=== PATIENT | female | born 1990 | race Caucasian/White ===

== ENCOUNTER 2020-07-02 15:52 | Outpatient (REF) | payer MEDICAID, SELFPAY | END 2020-07-02 15:53 | disposition home or self-care (01) | LOC: HO.LAB 15:52 | PROVIDERS: Visit Provider Internal Medicine | DX: Z20.828 Contact with and (suspected) exposure to other viral communicable diseases (principal) | CPT/HCPCS: C9803; U0003 ==

== ENCOUNTER 2021-07-07 21:58 | Emergency (ER) | payer MEDICAID, SELFPAY | END 2021-07-08 02:14 | disposition left against medical advice (07) | PROVIDERS: Emergency Provider Emergency Medicine | DX: R51.9 Headache, unspecified (principal) ==

== ENCOUNTER 2022-10-26 16:21 | Emergency (ER) | payer MEDICAID, SELFPAY ==
--- NOTE | ~2022-10-26 | XR_ITS ---
EXAMINATION: XR CHEST CLINICAL INFORMATION: Chest pain COMPARISON: None available. TECHNIQUE: Frontal view of the chest was obtained. FINDINGS: No significant abnormality is noted involving the heart, lungs, mediastinum, bony thorax or soft tissues. XR/XR chest 1V IMPRESSION: Unremarkable examination.
[2022-10-26 16:23] VITALS: BP 129/78; PULSE 86; RESP 16; TEMP 36.7; O2SAT 96; BMI 44.6
--- NOTE | 2022-10-26 16:25 | ECG_ITS ---
Test Reason : CHEST PAIN Blood Pressure : / mmHG Vent. Rate : 077 BPM Atrial Rate : 077 BPM P-R Int : 172 ms QRS Dur : 074 ms QT Int : 360 ms P-R-T Axes : 017 001 009 degrees QTc Int : 407 ms Normal sinus rhythm Cannot rule out Anterior infarct , age undetermined - could be related to body habitus/lead placement Abnormal ECG No previous ECGs available Referred By: Howie Hernández Electronically Signed By:SERINA MARTINEZ
--- NOTE | 2022-10-26 16:27 | ED.GENADULT ---
HPI - General Adult General Chief complaint: General Medical Stated complaint: sob,mid back pain Time Seen by Provider: 10/26/22 17:52 Related Data Previous Rx's Medication Instructions Recorded ibuprofen 400 mg tablet 400 mg PO Q6H PRN pain #20 tabs 10/26/22 Allergies Allergy/AdvReac Type Severity Reaction Status Date / Time No Known Allergies Allergy Unverified 04/18/20 17:02 NKA Allergy Unknown Uncoded 03/21/19 00:00 [facility] Social History Social History Advance Directives: No Advance Directives Information Provided: No Physical Exam ED Vital Signs: Vital Signs - 24 hr 10/26/22 16:23 Temperature 98.1 F Pulse Rate 86 Respiratory Rate 16 Blood Pressure 129/78 Pulse Oximetry 96 Oxygen Delivery Method Room Air BMI result Body Mass Index 44.6 Course Course Course Narrative: RME: 32 yold fmelae presents to the ED for SOB, pleurisy, chest and upper back pain. patient denies any leg swelling, calf pain, coughing up blood, recent surgery, recent trauma, or control use. patient states she had Covid last month Medical Decision Making Lab Data 10/26/22 16:41 10/26/22 16:41 Labs: Lab Results 10/26/22 10/26/22 10/26/22 Range/Units 16:37 16:41 16:41 WBC 7.4 (4.8-10.8) X10*3/uL RBC 4.22 (4.20-5.50) X10*6/uL Hgb 11.9 L (12.0-16.0) g/dl Hct 37.0 (37.0-47.0) % MCV 87.7 (80.0-98.0) fL MCH 28.2 (27.0-33.0) pg MCHC 32.2 (31.0-35.0) g/dl RDW 14.5 (11.0-16.0) % Plt Count 242 (160-400) X10*3/uL MPV 11.6 (9.4-12.3) fL Immature Gran % (Auto) 0.3 (0.0-0.4) % Neut % (Auto) 67.4 (45-73) % Lymph % (Auto) 23.8 (20-40) % [place] % (Auto) 6.6 (2-11) % Eos % (Auto) 1.2 (0-4) % Baso % (Auto) 0.7 (0-2) % Lymph # (Auto) 1.8 (1.2-4.9) X10*3/uL [place] # (Auto) 0.5 (0.1-1.2) X10*3/uL Eos # (Auto) 0.1 (0.0-0.4) X10*3/uL Baso # (Auto) 0.1 (0.0-0.2) X10*3/uL Abs Immat Gran (auto) 0.02 (0.00-0.03) X10*3/uL Absolute Neuts (auto) 5.0 (2.0-8.3) x10*3/uL Absolute Nucleated RBC 0.000 (0.0-0.012) X10*3/uL Nucleated RBC % (auto) 0.0 (0.0-0.2) /100WBC PT 11.6 (10.0-13.1) SEC INR 1.0 (0.9-1.1) APTT 24.4 L (26.0-36.4) SEC D-Dimer High Sensitivty < 150 NG/ML Sodium (135-145) mmol/L Potassium (3.3-5.1) mmol/L Chloride (96-108) mmol/L Carbon Dioxide (22-29) mmol/L Anion Gap (12-20) BUN (9-16) mg/dL Creatinine (0.5-1.4) mg/dL Estim Creat Clear Calc Estimated GFR Random Glucose (60-115) mg/dL Calcium (8.4-10.2) mg/dL Total Bilirubin (0.0-1.0) mg/dL AST (5-31) U/L ALT (0-31) U/L Alkaline Phosphatase (39-117) U/L Troponin I High Sens (<3.5-17.0) ng/L B-Natriuretic Peptide (<100) pg/mL Total Protein (6.5-8.0) g/dL Albumin (3.5-5.0) g/dL 10/26/22 10/26/22 10/26/22 Range/Units 16:41 16:41 16:41 WBC (4.8-10.8) X10*3/uL RBC (4.20-5.50) X10*6/uL Hgb (12.0-16.0) g/dl Hct (37.0-47.0) % MCV (80.0-98.0) fL MCH (27.0-33.0) pg MCHC (31.0-35.0) g/dl RDW (11.0-16.0) % Plt Count (160-400) X10*3/uL MPV (9.4-12.3) fL Immature Gran % (Auto) (0.0-0.4) % Neut % (Auto) (45-73) % Lymph % (Auto) (20-40) % [place] % (Auto) (2-11) % Eos % (Auto) (0-4) % Baso % (Auto) (0-2) % Lymph # (Auto) (1.2-4.9) X10*3/uL [place] # (Auto) (0.1-1.2) X10*3/uL Eos # (Auto) (0.0-0.4) X10*3/uL Baso # (Auto) (0.0-0.2) X10*3/uL Abs Immat Gran (auto) (0.00-0.03) X10*3/uL Absolute Neuts (auto) (2.0-8.3) x10*3/uL Absolute Nucleated RBC (0.0-0.012) X10*3/uL Nucleated RBC % (auto) (0.0-0.2) /100WBC PT (10.0-13.1) SEC INR (0.9-1.1) APTT (26.0-36.4) SEC D-Dimer High Sensitivty NG/ML Sodium 141 (135-145) mmol/L Potassium 3.9 (3.3-5.1) mmol/L Chloride 106 (96-108) mmol/L Carbon Dioxide 25 (22-29) mmol/L Anion Gap 14 (12-20) BUN 13 (9-16) mg/dL Creatinine 0.76 (0.5-1.4) mg/dL Estim Creat Clear Calc 136.3 Estimated GFR > 60 Random Glucose 104 (60-115) mg/dL Calcium 9.1 (8.4-10.2) mg/dL Total Bilirubin 0.3 (0.0-1.0) mg/dL AST 15 (5-31) U/L ALT 23 (0-31) U/L Alkaline Phosphatase 61 (39-117) U/L Troponin I High Sens < 3.5 (<3.5-17.0) ng/L B-Natriuretic Peptide < 10 (<100) pg/mL Total Protein 6.7 (6.5-8.0) g/dL Albumin 4.0 (3.5-5.0) g/dL Discharge Plan Discharge Clinical Impression: Chest pain Patient Disposition: Home, Self-Care Instructions: Chest Pain (ED) Prescriptions: New ibuprofen 400 mg tablet 400 mg PO Q6H PRN (Reason: pain) Qty: 20 0RF Referrals: Physician,Unknown J [Primary Care Provider] - Interventions: ED Discharge Assessment Last Done: 10/26/22 18:52 Discharge Date/Time: 10/26/22 18:53
[2022-10-26 16:53] LABS: MANUAL DIFF FLAG NO
[2022-10-26 16:55] LABS: Basophils Absolute Auto 0.1 X10*3/uL (0.0-0.2); Basophils Percent Auto 0.7 % (0-2); Eosinophils Absolute Auto 0.1 X10*3/uL (0.0-0.4); Eosinophils Percent Auto 1.2 % (0-4); Hemoglobin 11.9 g/dl (12.0-16.0); Imm Gran Abs Auto 0.02 X10*3/uL (0.00-0.03); Imm Gran Pct Auto 0.3 % (0.0-0.4); Lymphocytes Absolute Auto 1.8 X10*3/uL (1.2-4.9); Lymphocytes Percent Auto 23.8 % (20-40); Mean Corpuscular HGB Conc 32.2 g/dl (31.0-35.0); Mean Corpuscular Hemoglobin 28.2 pg (27.0-33.0); Mean Corpuscular Volume 87.7 fL (80.0-98.0); Mean Platelet Volume 11.6 fL (9.4-12.3); Monocytes Absolute Auto 0.5 X10*3/uL (0.1-1.2); Monocytes Percent Auto 6.6 % (2-11); Neutrophils Percent Auto 67.4 % (45-73); Platelet Count 242 X10*3/uL (160-400); Red Blood Count 4.22 X10*6/uL (4.20-5.50); Red Cell Distribution Width 14.5 % (11.0-16.0); White Blood Count 7.4 X10*3/uL (4.8-10.8)
[2022-10-26 17:00] LABS: Prothrombin Time 11.6 SEC (10.0-13.1)
[2022-10-26 17:03] LABS: Partial Thromboplastin Time 24.4 SEC (26.0-36.4)
[2022-10-26 17:11] LABS: D Dimer High Sensitivity < 150 NG/ML
[2022-10-26 17:20] LABS: Alanine Aminotransferase 23 U/L (0-31); Alkaline Phosphatase 61 U/L (39-117); Anion Gap 14 (12-20); Aspartate Amino Transferase 15 U/L (5-31); Bilirubin Total 0.3 mg/dL (0.0-1.0); Blood Urea Nitrogen 13 mg/dL (9-16); Calcium 9.1 mg/dL (8.4-10.2); Carbon Dioxide 25 mmol/L (22-29); Chloride 106 mmol/L (96-108); Creatinine Clr Calc Pharmacy 136.3; Estimated Glomerular Filt Rate > 60; Glucose Random 104 mg/dL (60-115); Potassium 3.9 mmol/L (3.3-5.1); Sodium 141 mmol/L (135-145); Total Protein 6.7 g/dL (6.5-8.0)
[2022-10-26 17:27] LABS: B Type Natriuretic Peptide < 10 pg/mL (<100)
[2022-10-26 17:28] LABS: Troponin-I High Sensitivity < 3.5 ng/L (<3.5-17.0)
--- NOTE | 2022-10-26 18:00 | ED.GENADULT ---
HPI - General Adult General Chief complaint: General Medical Stated complaint: sob,mid back pain Time Seen by Provider: 10/26/22 17:52 History of Present Illness HPI narrative: Patient is a 32-year-old female presents today with having chest pain. Seems to be worse when she takes a deep breath. Patient is not on any control pills. No leg swelling. No history of cancer. Patient denies any diaphoresis. No history of diabetes, hypertension, high cholesterol, smoking, heart attack. Patient is of larger size she weighs 121 kg and she is 5 ft 5 in tall. Her BMI is approximately 45. Patient feels that when she takes a deep breath she had some pain. Patient denies any family history of dissections. No fever no chills no coughing or congestion or upper respiratory symptoms. Related Data Previous Rx's Medication Instructions Recorded ibuprofen 400 mg tablet 400 mg PO Q6H PRN pain #20 tabs 10/26/22 Allergies Allergy/AdvReac Type Severity Reaction Status Date / Time No Known Allergies Allergy Unverified 04/18/20 17:02 NKA Allergy Unknown Uncoded 03/21/19 00:00 Review of Systems Review of Systems: Positive chest pain Yes all other systems are reviewed and are negative [facility] Past Medical History Attestation statement: The following information was validated with the patient. Social History Social History Advance Directives: No Advance Directives Information Provided: No Physical Exam ED Vital Signs: Vital Signs - 24 hr 10/26/22 16:23 Temperature 98.1 F Pulse Rate 86 Respiratory Rate 16 Blood Pressure 129/78 Pulse Oximetry 96 Oxygen Delivery Method Room Air BMI result Body Mass Index 44.6 Appearance: Alert. Oriented X3. No acute distress. Eyes: Pupils equal, round and reactive to light. ENT: Pharynx normal. Neck: Normal inspection. Neck supple. No lymph nodes noted. No crepitus CVS: Normal heart rate and rhythm. Pulses normal. Normal S1 and S2 Respiratory: No respiratory distress. Breath sounds normal. No Wheezing. No rales Abdomen: Soft and nontender. No rigidity. No distention. good BS x4 Skin: Skin warm and dry. Normal skin color. Normal skin turgor. Extremities: No lower extremity edema. Neurovascular intact to all extremities. No Lacerations. No Rash Neuro: Oriented X 3. No motor deficit. No sensory deficit. Moving all extermities. No slurred speech Medical Decision Making Medical Decision Making [facility] Narrative: Patient well appearing no acute distress she is 32 years old 1 cardiac risk factor being that she is larger in size. Patient's cardiac enzyme was negative. Her history was not consistent with ACS. Her EKG showed a sinus pattern heart rate was 75 NM QRS QT within normal limits is no acute ST segment elevation. Patient well appearing no distress. Symptoms not consistent with ACS. Patient's heart score is less than 3. Chest x-ray was negative for any acute evidence of pneumonia pneumothorax. Patient's D-dimer is negative. In the setting of low risk patient is unlikely to have pulmonary emboli. Will discharge patient home follow up for her chest pain. Differential Diagnosis Differential Diagnoses: The differential diagnosis associated with the presentation includes PE, pneumonia, pneumothorax, ACS, musculoskeletal, dissection Lab Data [facility] Lab Attestation statement: I reviewed the patient's lab results. 10/26/22 16:41 10/26/22 16:41 Labs: Lab Results 10/26/22 10/26/22 10/26/22 Range/Units 16:37 16:41 16:41 WBC 7.4 (4.8-10.8) X10*3/uL RBC 4.22 (4.20-5.50) X10*6/uL Hgb 11.9 L (12.0-16.0) g/dl Hct 37.0 (37.0-47.0) % MCV 87.7 (80.0-98.0) fL MCH 28.2 (27.0-33.0) pg MCHC 32.2 (31.0-35.0) g/dl RDW 14.5 (11.0-16.0) % Plt Count 242 (160-400) X10*3/uL MPV 11.6 (9.4-12.3) fL Immature Gran % (Auto) 0.3 (0.0-0.4) % Neut % (Auto) 67.4 (45-73) % Lymph % (Auto) 23.8 (20-40) % [place] % (Auto) 6.6 (2-11) % Eos % (Auto) 1.2 (0-4) % Baso % (Auto) 0.7 (0-2) % Lymph # (Auto) 1.8 (1.2-4.9) X10*3/uL [place] # (Auto) 0.5 (0.1-1.2) X10*3/uL Eos # (Auto) 0.1 (0.0-0.4) X10*3/uL Baso # (Auto) 0.1 (0.0-0.2) X10*3/uL Abs Immat Gran (auto) 0.02 (0.00-0.03) X10*3/uL Absolute Neuts (auto) 5.0 (2.0-8.3) x10*3/uL Absolute Nucleated RBC 0.000 (0.0-0.012) X10*3/uL Nucleated RBC % (auto) 0.0 (0.0-0.2) /100WBC PT 11.6 (10.0-13.1) SEC INR 1.0 (0.9-1.1) APTT 24.4 L (26.0-36.4) SEC D-Dimer High Sensitivty < 150 NG/ML Sodium (135-145) mmol/L Potassium (3.3-5.1) mmol/L Chloride (96-108) mmol/L Carbon Dioxide (22-29) mmol/L Anion Gap (12-20) BUN (9-16) mg/dL Creatinine (0.5-1.4) mg/dL Estim Creat Clear Calc Estimated GFR Random Glucose (60-115) mg/dL Calcium (8.4-10.2) mg/dL Total Bilirubin (0.0-1.0) mg/dL AST (5-31) U/L ALT (0-31) U/L Alkaline Phosphatase (39-117) U/L Troponin I High Sens (<3.5-17.0) ng/L B-Natriuretic Peptide (<100) pg/mL Total Protein (6.5-8.0) g/dL Albumin (3.5-5.0) g/dL 10/26/22 10/26/22 10/26/22 Range/Units 16:41 16:41 16:41 WBC (4.8-10.8) X10*3/uL RBC (4.20-5.50) X10*6/uL Hgb (12.0-16.0) g/dl Hct (37.0-47.0) % MCV (80.0-98.0) fL MCH (27.0-33.0) pg MCHC (31.0-35.0) g/dl RDW (11.0-16.0) % Plt Count (160-400) X10*3/uL MPV (9.4-12.3) fL Immature Gran % (Auto) (0.0-0.4) % Neut % (Auto) (45-73) % Lymph % (Auto) (20-40) % [place] % (Auto) (2-11) % Eos % (Auto) (0-4) % Baso % (Auto) (0-2) % Lymph # (Auto) (1.2-4.9) X10*3/uL [place] # (Auto) (0.1-1.2) X10*3/uL Eos # (Auto) (0.0-0.4) X10*3/uL Baso # (Auto) (0.0-0.2) X10*3/uL Abs Immat Gran (auto) (0.00-0.03) X10*3/uL Absolute Neuts (auto) (2.0-8.3) x10*3/uL Absolute Nucleated RBC (0.0-0.012) X10*3/uL Nucleated RBC % (auto) (0.0-0.2) /100WBC PT (10.0-13.1) SEC INR (0.9-1.1) APTT (26.0-36.4) SEC D-Dimer High Sensitivty NG/ML Sodium 141 (135-145) mmol/L Potassium 3.9 (3.3-5.1) mmol/L Chloride 106 (96-108) mmol/L Carbon Dioxide 25 (22-29) mmol/L Anion Gap 14 (12-20) BUN 13 (9-16) mg/dL Creatinine 0.76 (0.5-1.4) mg/dL Estim Creat Clear Calc 136.3 Estimated GFR > 60 Random Glucose 104 (60-115) mg/dL Calcium 9.1 (8.4-10.2) mg/dL Total Bilirubin 0.3 (0.0-1.0) mg/dL AST 15 (5-31) U/L ALT 23 (0-31) U/L Alkaline Phosphatase 61 (39-117) U/L Troponin I High Sens < 3.5 (<3.5-17.0) ng/L B-Natriuretic Peptide < 10 (<100) pg/mL Total Protein 6.7 (6.5-8.0) g/dL Albumin 4.0 (3.5-5.0) g/dL Independent Interpretation I performed an independent interpretation of an: EKG and Plain X-Ray Interpretation: Patient's EKG by my interpretation showed the sinus pattern heart rate 75 NM QRS QT within normal limits there is no acute ST segment elevation. Patient's chest x-ray by my interpretation was grossly negative there is no pneumonia no pneumothorax. Radiology Impression Discussion of test interpretation with radiology: I have reviewed the radiologist's reading. Prescription Management I considered prescription management with: Pain Medication Discharge Plan Discharge Clinical Impression: Chest pain Patient Disposition: Home, Self-Care Instructions: Chest Pain (ED) Prescriptions: New ibuprofen 400 mg tablet 400 mg PO Q6H PRN (Reason: pain) Qty: 20 0RF Referrals: Physician,Unknown J [Primary Care Provider] -
[2022-10-26 18:17] VITALS: BP 134/74; PULSE 70; RESP 18; TEMP 36.6; O2SAT 97
== END 2022-10-26 18:53 | disposition home or self-care (01) ==
PROVIDERS: Physician Assistant; Emergency Provider Emergency Medicine Emergency Medical Services
DX: R07.89 Other chest pain (principal); R06.02 Shortness of breath; Z79.899 Other long term (current) drug therapy
CPT/HCPCS: 36415; 71045; 80053; 83880; 84484; 85025; 85379; 85610; 85730; 93005; 99283; 99284

== ENCOUNTER 2023-01-25 19:40 | Emergency (ER) | payer MEDICAID, SELFPAY ==
[2023-01-25 19:48] VITALS: BP 153/87; PULSE 76; RESP 18; TEMP 36.4; O2SAT 98; BMI 44.6
--- NOTE | 2023-01-25 19:48 | ED.HA ---
HPI - Headache General Chief Complaint: Headache Stated Complaint: migraine Related Data Previous Rx's Medication Instructions Recorded ibuprofen 400 mg tablet 400 mg PO Q6H PRN pain #20 tabs 10/26/22 Allergies Allergy/AdvReac Type Severity Reaction Status Date / Time No Known Allergies Allergy Verified 01/25/23 19:48 [facility] Social History Social History Alcohol intake: never Smoked in Last 30 Days: No Use of substances other than those prescribed or required for medical reasons: No Advance Directives: No Advance Directives Information Provided: No Patient : No Physical Exam Vital Signs: Vital Signs: Last Vital Signs Temp 98.4 F 01/25/23 21:41 Pulse 85 01/25/23 21:41 Resp 16 01/25/23 21:41 BP 140/79 H 01/25/23 21:41 Pulse Ox 97 01/25/23 21:41 O2 Del Method Room Air 01/25/23 21:41 BMI result Body Mass Index 44.6 Course Course Course Narrative: RME - 33 yo female with history of migraines presents to the ER for evaluation of diffuse headache that started at 6am today. No relief with motrin and tylenol at home. +photophobia. No neck pain, weakness, numbness, tingling, or vision changes. Plan: medicate and reassess. Reevaluation(s) Reevaluation #1: patient eloped prior to treatment Discharge Plan Discharge Clinical Impression: Headache Patient Disposition: Elopement Prescriptions: No Action ibuprofen 400 mg tablet 400 mg PO Q6H PRN (Reason: pain) Qty: 20 0RF Interventions: ED Discharge Assessment Last Done: 01/25/23 22:35 Discharge Date/Time: 01/25/23 22:36
[2023-01-25 21:41] VITALS: BP 140/79; PULSE 85; RESP 16; TEMP 36.9; O2SAT 97
--- NOTE | 2023-01-25 22:32 | PC.NURSE ---
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 The pt reports presence of continued headache adding that she has been asking for medication to assist with pain for 2 hours; RN attempted to educate the patient on the medications available for RN's to order prior to provider eval in the main however she reported I already took that . The pt was conversing in full/complete sentences, ambulating with a steady gait and without any visible distress noted.
== END 2023-01-25 22:36 | disposition left against medical advice (07) ==
PROVIDERS: Emergency Provider Emergency Medicine
DX: R51.9 Headache, unspecified (principal)
CPT/HCPCS: 99282; 99284

== ENCOUNTER 2025-01-04 16:37 | Emergency (ER) | payer MEDICAID, SELFPAY ==
--- NOTE | ~2025-01-04 | XR_ITS ---
CLINICAL HISTORY: cp 2 view chest x-ray Comparison: None Findings: Normal size heart. No consolidation, pleural effusion or pneumothorax. No acute fracture. IMPRESSION: 1. No acute findings. This document has been electronically signed by: Ninoska Barrera MD on 01/04/2025 17:22:50
--- NOTE | 2025-01-04 16:40 | ECG_ITS ---
Test Reason : CP Blood Pressure : */* mmHG Vent. Rate : 89 BPM Atrial Rate : 89 BPM P-R Int : 180 ms QRS Dur : 74 ms QT Int : 362 ms P-R-T Axes : 34 6 6 degrees QTcB Int : 440 ms Normal sinus rhythm Normal ECG When compared with ECG of 26-Oct-2022 16:42, No significant change was found Referred By: Yelena Jean Electronically Signed By: SERINA MARTINEZ
[2025-01-04 16:50] VITALS: BP 131/67; PULSE 94; RESP 22; TEMP 37.1; O2SAT 95; BMI 45.7
--- NOTE | 2025-01-04 16:50 | ED.CHESTPAIN ---
HPI - Chest Pain General Stated Complaint: cp Related Data Previous Rx's ?Medication ?Instructions ?Recorded ibuprofen 400 mg tablet 400 mg PO Q6H PRN pain #20 tabs 10/26/22 Allergies Allergy/AdvReac Type Severity Reaction Status Date / Time No Known Allergies Allergy Verified 01/04/25 16:51 [facility] Social History Social History Alcohol intake: never Course Course Course Narrative: This is a Rapid Medical Exam performed in triage by Yelena Jean PA-C. Full HPI, ROS and PE to be performed by primary ED provider. 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 Admits to feeling stressed prior to sx. CP describes as tightness & intermittent PE: tearful, in wheelchair, nontoxic appearing, talking in complete sentences Plan: EKG, labs, CXR, SARs Discharge Plan Discharge Prescriptions: No Action ibuprofen 400 mg tablet 400 mg PO Q6H PRN (Reason: pain) Qty: 20 0RF Print Language: Occitan
[2025-01-04 17:15] LABS: MANUAL DIFF FLAG NO
[2025-01-04 17:25] LABS: Basophils Percent Auto 0.5 % (0-2); Eosinophils Absolute Auto 0.1 X10*3/uL (0.0-0.4); Eosinophils Percent Auto 0.7 % (0-4); Hematocrit 33.6 % (37.0-47.0); Hemoglobin 10.6 g/dl (12.0-16.0); Imm Gran Abs Auto 0.03 X10*3/uL (0.00-0.03); Imm Gran Pct Auto 0.4 % (0.0-0.4); Lymphocytes Absolute Auto 1.3 X10*3/uL (1.2-4.9); Lymphocytes Percent Auto 16.7 % (20-40); Mean Corpuscular HGB Conc 31.5 g/dl (31.0-35.0); Mean Corpuscular Hemoglobin 27.1 pg (27.0-33.0); Mean Corpuscular Volume 85.9 fL (80.0-98.0); Mean Platelet Volume 11.1 fL (9.4-12.3); Monocytes Absolute Auto 0.6 X10*3/uL (0.1-1.2); Monocytes Percent Auto 8.1 % (2-11); Neutrophils Absolute Auto 5.5 x10*3/uL (2.0-8.3); Neutrophils Percent Auto 73.6 % (45-73); Platelet Count 267 X10*3/uL (160-400); Red Blood Count 3.91 X10*6/uL (4.20-5.50); Red Cell Distribution Width 14.8 % (11.0-16.0); White Blood Count 7.5 X10*3/uL (4.8-10.8)
[2025-01-04 17:38] LABS: Alanine Aminotransferase 22 U/L (0-31); Albumin Level 4.2 g/dL (3.5-5.0); Alkaline Phosphatase 59 U/L (39-117); Anion Gap 13 (12-20); Aspartate Amino Transferase 30 U/L (5-31); Bilirubin Direct 0.2 mg/dL (0.0-0.5); Bilirubin Total 0.5 mg/dL (0.0-1.0); Blood Urea Nitrogen 13 mg/dL (9-16); Calcium 9.3 mg/dL (8.4-10.2); Carbon Dioxide 25 mmol/L (22-29); Chloride 110 mmol/L (96-108); Creatinine Clr Calc Pharmacy 111.5; Estimated Glomerular Filt Rate > 60; Glucose Random 106 mg/dL (60-115); HCG Quantitative < 2 mIU/mL; Potassium 3.7 mmol/L (3.3-5.1); Sodium 144 mmol/L (135-145); Total Protein 6.9 g/dL (6.5-8.0); Troponin-I High Sensitivity < 2.7 ng/L (<3.5-17.0)
[2025-01-04 17:52] LABS: Influenza A PCR NEGATIVE (Negative); Influenza B PCR NEGATIVE (Negative); Resp Syncy Virus RNA Qual PCR NEGATIVE (Negative); SARS COV2 PCR INHOUSE NEGATIVE (Negative)
[2025-01-04 19:46] VITALS: BP 142/89; PULSE 83; RESP 10; TEMP 36.5; O2SAT 98
--- NOTE | 2025-01-04 20:17 | PC.NURSE ---
Upon entering room patient noted to be on cellphone. Patient using profanity on phone. Patient asked to stop swearing and patient states That's it I am leaving . 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 Pt did not have an IV in place. ana Hernandez RN made aware.
[2025-01-04 20:27] LABS: Troponin-I High Sensitivity < 2.7 ng/L (<3.5-17.0)
== END 2025-01-04 20:20 | disposition left against medical advice (07) ==
PROVIDERS: Physician Assistant; Emergency Provider Emergency Medicine; PCP Family Medicine
DX: R07.89 Other chest pain (principal); R42 Dizziness and giddiness; R51.9 Headache, unspecified; Z79.899 Other long term (current) drug therapy; Z03.818 Encounter for observation for suspected exposure to other biological agents ruled out
CPT/HCPCS: 0241U; 36415; 71046; 80048; 80076; 83735; 84484; 84702; 85025; 93005; 96372; 99284; 99285

== ENCOUNTER → 2025-01-04 16:40 | Outpatient (BNV) | payer MEDICAID, SELFPAY | PROVIDERS: Emergency Provider Emergency Medicine; PCP Family Medicine; Visit Provider Internal Medicine | DX: R07.9 Chest pain, unspecified (principal) | CPT/HCPCS: 93010 ==

== ENCOUNTER → 2025-01-04 16:52 | Outpatient (BNV) | payer MEDICAID, SELFPAY | PROVIDERS: Visit Provider Specialist | DX: R07.9 Chest pain, unspecified (principal) | CPT/HCPCS: 71046 ==